=== PATIENT | female | born 1985 | race American Indian/Alaskan Native ===

== ENCOUNTER 2017-01-29 20:36 | Outpatient (CLI) | payer BC ==
[2017-01-29 20:55] VITALS: BP 121/79
[2017-01-29] MEDS ORDERED: LACTATED RINGERS 1,000 ML IV ONE (21:03)
[2017-01-29 21:30] LABS: Bilirubin,Urine NEG (Negative); Blood,Urine NEG (Negative); Ketones,Urine NEG (Negative); Leukocyte Esterase,Urine NEG (Negative); Mucus,Urine 3+ /HPF; Nitrite,Urine NEG (Negative); Urobilinogen,Urine < 2.0 mg/dL (<2.0)
[2017-01-29] MEDS ORDERED: VISTARIL PO ONE (23:02)
== END 2017-01-29 23:17 | disposition home or self-care (01) ==
LOC: TRG 20:36
PROVIDERS: ATTEND Obstetrics & Gynecology
DX: O26.892 Other specified pregnancy related conditions, second trimester (principal); R10.9 Unspecified abdominal pain; M54.5 Low back pain; R10.2 Pelvic and perineal pain; Z3A.27 27 weeks gestation of pregnancy
CPT/HCPCS: 59025; 81001; 96360; J7120; Q0177

== ENCOUNTER 2018-06-03 17:33 | Outpatient (CLI) | payer BC ==
[2018-06-03] MEDS ORDERED: LACTATED RINGERS 1,000 ML ONE (17:48)
[2018-06-03] MEDS ORDERED: VISTARIL PO ONE ×2 (18:14→20:00)
[2018-06-03] MEDS: LACTATED RINGERS 1,000 ML IV SCH ×2 (18:29→19:44)
[2018-06-03 18:51] LABS: Basophils % (Auto) 0.2 % (0.0-1.8); Eosinophils # (Auto) 0.2 K/mm3 (0.0-0.4); Eosinophils % (Auto) 2.8 % (0.0-4.3); Hematocrit 31.9 % (30.3-42.9); Hemoglobin 10.5 gm/dl (10.1-14.3); Lymphocytes # (Auto) 1.3 K/mm3 (1.2-5.4); Lymphocytes % (Auto) 15.8 % (13.4-35.0); Mean Corpuscular HGB Conc 33 % (30-34); Mean Corpuscular Hemoglobin 26 pg (28-32); Mean Corpuscular Volume 80 fl (79-97); Monocytes # (Auto) 0.6 K/mm3 (0.0-0.8); Monocytes % (Auto) 7.1 % (0.0-7.3); Platelet Count 177 K/mm3 (140-440); Red Blood Count 3.99 M/mm3 (3.65-5.03); Red Cell Distribution Width 15.8 % (13.2-15.2)
[2018-06-03 19:08] LABS: Bilirubin,Urine NEG (Negative); Blood,Urine NEG (Negative); Color,Urine Yellow (Yellow); Mucus,Urine 3+ /HPF
[2018-06-03] MEDS ORDERED: BRETHINE SUB-Q ONE (20:22)
[2018-06-03] MEDS: BRETHINE SUB-Q SCH ×2 (21:23→22:04)
[2018-06-03 22:04] VITALS: BP 125/76
[2018-06-03] MEDS ORDERED: TYLENOL PO ONE (22:53)
[2018-06-04] MEDS ORDERED: VISTARIL PO ONE (18:40)
== END 2018-06-03 23:10 | disposition home or self-care (01) ==
LOC: TRG 17:33
PROVIDERS: ATTEND Obstetrics & Gynecology
DX: O47.03 False labor before 37 completed weeks of gestation, third trimester (principal); Z3A.36 36 weeks gestation of pregnancy
CPT/HCPCS: 36415; 59025; 81001; 85025; 96360; 96361; 96372; J3105; J7120; Q0177